=== PATIENT | female | born 1940 | race Hispanic/Latino ===

== ENCOUNTER 2017-06-01 19:33 | Emergency (ER) | payer MEDICARE ==
[~2017-06-01 19:33] MED LIST: AMLO5TAB4 PO; BRIM5DRO4 OD; CARV6.25 PO; DEXT15DR29 OU; FLU15OS OS; LATA2.5D2 OU; LISI40TA4 PO; LORA10TA7 PO; SODI15OR PO
[2017-06-01] MEDS ORDERED: LIDOCAINE HCL 1% 20 ML VIAL ONE (20:22)
[2017-06-01] MEDS ORDERED: CEFAZOLIN SODIUM 1 GM VIAL ONE (20:34)
== END 2017-06-01 21:27 | disposition home or self-care (01) ==
LOC: EDH 19:33
DX: S81.812A Laceration without foreign body, left lower leg, initial encounter (principal); I10 Essential (primary) hypertension; M19.90 Unspecified osteoarthritis, unspecified site; I25.810 Atherosclerosis of coronary artery bypass graft(s) without angina pectoris; Z95.0 Presence of cardiac pacemaker; Z88.6 Allergy status to analgesic agent; W26.8XXA Contact with other sharp object(s), not elsewhere classified, initial encounter; Y93.89 Activity, other specified; Y92.89 Other specified places as the place of occurrence of the external cause; Y99.8 Other external cause status
CPT/HCPCS: 12032; 73590; 96372; 99284; A4218; J0690

== ENCOUNTER 2017-06-04 20:19 | Emergency (ER) | payer MEDICARE ==
[2017-06-04 21:10] LABS: BASOPHILS % (AUTO) 0.7 % (0.0-5.0); EOSINOPHILS % (AUTO) 2.6 % (0.0-8.0); HEMATOCRIT 35.4 % (36-48); LYMPHOCYTES % (AUTO) 12.9 % (21.0-51.0); MEAN CORPUSCULAR HEMOGLOBIN 30.6 pg (27.0-33.0); MEAN CORPUSCULAR HGB CONC 33.3 g/dL (32.0-36.0); MEAN CORPUSCULAR VOLUME 92.1 fL (79-99); MONOCYTES % (AUTO) 7.9 % (3.0-13.0); NEUTROPHILS % (AUTO) 75.9 % (40.0-77.0); PLATELET COUNT (AUTO) 102 K/uL (130-400); RED BLOOD CELL COUNT(AUTO) 3.85 MIL/uL (4.00-5.50); RED CELL DISTRIBUTION WIDTH 15.2 % (11.0-15.5)
[2017-06-04 21:17] LABS: CREATININE 2.4 mg/dL (0.5-1.5); POTASSIUM 3.7 mmol/L (3.5-5.1)
== END 2017-06-04 23:25 | disposition home or self-care (01) ==
LOC: EDH 20:19
DX: S81.812D Laceration without foreign body, left lower leg, subsequent encounter (principal); M79.662 Pain in left lower leg; X58.XXXD Exposure to other specified factors, subsequent encounter
CPT/HCPCS: 36415; 73590; 76882; 80048; 85025; 87040

== ENCOUNTER → 2017-10-26 | Outpatient (CLI) | payer OTHER ==
[~2017-10-26] MED LIST changes: -AMLO5TAB4 PO; +AMLO5TAB7 PO; -BRIM5DRO4 OD; +BRIM5DRO4 OP; -DEXT15DR29 OU; +FLU15OS OP; -FLU15OS OS; +FURO20TA4 PO; +IOHEXOL 350 MG/ML 100ML INFUS..BTL IV ONE; +LATA2.5D2 OP; -LATA2.5D2 OU; -LORA10TA7 PO; +SEVE800T7 PO; -SODI15OR PO; +TYL3B PO
== END | disposition home or self-care (01) ==
LOC: RAH 15:18
PROVIDERS: ATTEND Internal Medicine Pulmonary Disease
DX: J90 Pleural effusion, not elsewhere classified (principal); I51.7 Cardiomegaly
CPT/HCPCS: 71275; Q9967